=== PATIENT | female | born 2000 | race Caucasian/White ===

== ENCOUNTER 2020-12-31 13:07 | Outpatient (CLI) | payer BC, MEDICAID, SELFPAY ==
[2020-12-31 13:58] LABS: Hematocrit 40.9 % (37.0-47.0); Hemoglobin 12.7 g/dL (12.0-15.0); Mean Corpuscular HGB Conc 31.1 g/dl (32-36); Mean Corpuscular Volume 83.8 fl (80-100); Mean Platelet Volume 10.3 fl (7.4-10.4); Platelet Count Result 275 k/mm3 (150-375); Red Blood Count 4.88 M/mm3 (4.2-5.4); Red Cell Distribution Width 13.5 % (11.5-14.5); White Blood Count 6.9 K/mm3 (4.5-10.0)
== END 2020-12-31 13:08 | disposition home or self-care (01) ==
LOC: ANHSURGERY 13:17
PROVIDERS: PCP Physician Assistant; Visit Provider Obstetrics & Gynecology Gynecologic Oncology
DX: Z30.2 Encounter for sterilization (principal)
CPT/HCPCS: 36415; 85027; 86850; 86900; 86901

== ENCOUNTER 2021-01-06 02:04 | Day surgery (SDC) | payer BC, MEDICAID, SELFPAY ==
[2020-12-30 10:07] VITALS: BMI 20.7
[2021-01-06] VITALS (8 sets, daily range): BP systolic 112–138; BP diastolic 65–88; PULSE 65–103; RESP 15–20; TEMP 36.2–36.8; O2SAT 99–100
[2021-01-06] MEDS: ACETAMINOPHEN 500 MG TABLET 1000 MG PO (09:58)
[2021-01-06] MEDS: GABAPENTIN 300 MG CAPSULE PO (09:58)
[2021-01-06] MEDS: LACTATED RINGERS 1,000 ML 30 ML IV CONT ×2 (10:27→13:46)
--- NOTE | 2021-01-06 12:06 | WPDHPUPDATE1 ---
History and Physical Update Update Date/Time: 01/06/21 12:06 History and Physical has been reviewed, including an updated exam of the patient. There are NO changes in the patient's condition. Risks, benefits, and alternatives have been discussed and questions answered. Patient agrees to proceed with procedure.
--- NOTE | 2021-01-06 12:06 | PM.IMHP ---
H&P: HPI History of Present Illness Date/Time: 01/06/21 12:06 Chief Complaint: I'm here for my surgery Narrative: Patient presents for bilateral salpingectomy due to desire for permanent sterilization. Review of Systems Review of Systems: All systems reviewed & are unremarkable except as noted in HPI and below PMFSH Social History Social History Smoking status: Never smoker Alcohol intake: never Substance use: never Substance use type: does not use Living arrangements: with family Spiritual care concerns: No Meds Home Medications and Allergies Home Medications Medication Instructions Recorded Confirmed Type budesonide-formoterol [Symbicort] 2 puff INHALATION BID PRN 12/30/20 01/06/21 History sertraline [Zoloft] 200 mg PO DAILY 12/30/20 01/06/21 History Allergies Allergy/AdvReac Type Severity Reaction Status Date / Time Penicillins Allergy Severe Hives Verified 01/06/21 09:53 Vital Signs Vital Signs - 24 hr 01/06/21 10:33 Temperature 36.8 C Pulse Rate 65 Respiratory Rate 16 Blood Pressure 113/65 Pulse Oximetry 100 Exam Const: General: comfortable and no acute distress Neck: Neck: supple Thyroid: thyroid normal Resp: Auscultation: clear to auscultation bilaterally Cardio: Rate: regular rate Rhythm: regular rhythm GI: GI Palp: Yes Soft to palpation Auscultation: normal bowel sounds Skin: General skin exam: normal color and no rashes or lesions noted Neuro: General: gait normal Cognition (Neuro): normal cognition Speech: normal speech Psych: Mental Status: mental status grossly normal Assessment and Plan Assessment and plan (1) Admission for sterilization: Code(s): Z30.2 - Encounter for sterilization Status: Acute Assessment and Plan: Diagnostic laparoscopy, bilateral salpingectomy
--- NOTE | 2021-01-06 12:12 | WPDANESEPPF ---
Anes - Initial Pre Proc Eval Procedure: Operation Date: 01/06/21 12:00 Proposed Procedures p Diagnostic Laparoscopy, Bilateral Salpingectomy - Crystal Green DO Date/Time: 01/06/21 12:12 Surgeon: Crystal Green DO Pre Op Diagnosis: Desire Surgical Sterility Patient Data Age: 20 Gender: F Height: 1.65 m Weight: 56.4 kg Last Vital Signs Temp 98.3 F 01/06/21 10:33 Pulse 65 01/06/21 10:33 Resp 16 01/06/21 10:33 BP 113/65 01/06/21 10:33 Pulse Ox 100 01/06/21 10:33 Allergies Allergy/AdvReac Type Severity Reaction Status Date / Time Penicillins Allergy Severe Hives Verified 01/06/21 09:53 Home Medications Medication Instructions Recorded Confirmed Type budesonide-formoterol [Symbicort] 2 puff INHALATION BID PRN 12/30/20 01/06/21 History sertraline [Zoloft] 200 mg PO DAILY 12/30/20 01/06/21 History Patient hx anesthesia problems: none Family hx anesthesia problems: none Results Review: All pre-operative results and documents have been reviewed as part of the pre-operative evaluation. [facility] Past Medical History Medical History (Updated 01/06/21 @ 12:12 by Cayden Gramajo MD) Anxiety Asthma Social History Social History Smoking status: Never smoker Alcohol intake: never Substance use: never Substance use type: does not use Living arrangements: with family Spiritual care concerns: No Anes - Eval Final PreProcedure Day of Procedure 01/06/21 12:12 Patient weight: normal Heart: regular rate and rhythm Lungs: clear to auscultation Airway: Mallampati scale class II Neurological: alert and oriented Last oral intake: >/= 8 hours ASA classification: II Emergent: no Anesthetic plan: proceed Anesthesia type and monitoring: general ETT and standard monitoring Results Review: All pre-operative results and documents have been reviewed as part of the pre-operative evaluation. Informed Consent: The patient's anesthetic plan and its attendant risks and benefits were discussed with the patient/family/POA. Questions were solicited and answers provided to the satisfaction of the patient/family/POA.
[2021-01-06] MEDS: BUPIVACAINE HCL 0.25% PF 30 ML VIAL INFILTRATE (13:41)
--- NOTE | 2021-01-06 13:47 | P.OP_ITS ---
Procedure Note - Detailed Date of Procedure 01/06/21 Pre-op Diagnosis Desire Surgical Sterility Post-op Diagnosis same Procedure Performed Diagnostic laparoscopy, bilateral salpingectomy Surgeon Crystal Green DO Clinical Team Manager Isa Anesthesia general Indications Desires permanent sterilization Findings Normal appearing vulva and vaginal canal. small cervix. Normal liver and bowel. Internally, the bowel and pelvic organs were unremarkable. Description of Procedure The patient was taken to the operating room where she was placed under general anesthesia. She was put in the dorsal lithotomy position. No preoperative antibiotics were indicated. A timeout was performed. A speculum was placed in the vagina and the cervix visualized. The cervix was grasped with an Allis clamp, a Kroner uterine manipulator was placed. The tenaculum and speculum were removed. A edmondson was placed. Gloves were changed and attention was then turned to the abdomen. The skin above the umbilicus was grasped with penetrating towel clamps. The skin was injected with local and incised with a scalpel. A veress needle was placed and a saline water drop test confirmed intraperitoneal placement. CO2 insufflation was started and the abdomen was brought up to 12 mmg Hg. A 5 mm trocar was inserted in an Optiview trocar and survey of the abdomen revealed some peritoneal air but no evidence of bowel or vascular injury. The patient was placed in steep trendelenburg position. Additional trocar sites were identified, injected and incised in the right and left lower quadrants and 5 mm trocars were introduced under direct visualization. The right tube was elevated and cauterized and transected off using the Ligasure. The tube was then removed through the compounding assistant port. This was repeated on the left side. All pedicles were noted to be hemostatic. The gas was allowed to escape and the trocars were removed. The incisions were closed with subcuticular 4-0 monocryl and steri strips. The edmondson and uterine manipulator were removed. The cervix was oozing from the tenaculum sites and so Monsel's solution was placed. All instruments and sponges were accounted for at the conclusion of the procedure. The patient was taken to the recovery room in stable condition. Implants None Estimated Blood Loss 5 Urine Output 20 Drains No Packing No Pathology yes Complications No immediate complications Condition stable Disposition PACU
[2021-01-06] MEDS: oxyCODONE HCL (*CRX) 5 MG TAB IR PO (15:10)
== END 2021-01-06 15:40 | disposition home or self-care (01) ==
PROVIDERS: PCP Physician Assistant; Visit Provider Obstetrics & Gynecology Gynecologic Oncology
PROC: (CPT 49320; principal; 2021-01-06 12:00)
DX: Z30.2 Encounter for sterilization (principal)
CPT/HCPCS: 58661; 88302; A9270; J0330; J1100; J2250; J2405; J2704; J3010; J7030; J7120